=== PATIENT | male | born 1945 | race Caucasian/White ===

== ENCOUNTER 2022-04-07 09:57 | Outpatient (CLI) | payer OTHER, SELFPAY ==
[2022-04-07 13:40] LABS: Basophils Absolute Auto 0.03 K/uL (0.00-0.30); Basophils Percent Auto 0.6 % (0.0-3.0); Eosinophils Absolute Auto 0.12 K/uL (0.00-0.50); Eosinophils Percent Auto 2.4 % (0.0-7.0); Hematocrit 44.4 % (37.0-53.0); Hemoglobin* 14.4 gm/dL (13.5-17.5); Immature Granulocytes Abs Auto 0.01 K/uL (0.00-0.30); Lymphocytes Percent Auto 18.2 % (20-44); Mean Corpuscular HGB Conc 32 gm/dL (32-36); Mean Corpuscular Hemoglobin 30 pg (26-34); Mean Corpuscular Volume 93 fL (80-100); Monocytes Percent Auto 9.1 % (0.0-11.0); Neutrophils Absolute Auto 3.51 K/uL (1.7-7.0); Neutrophils Percent Auto 69.5 % (42.0-72.0); Platelet Count* 196 K/uL (140-440); RDW Coefficient of Variation % 13.6 % (11.5-15.5); Red Blood Count 4.78 m/uL (4.30-5.90); White Blood Count* 5.05 K/uL (4.50-11.00)
[2022-04-07 13:59] LABS: Slide Review Reflex No
[2022-04-07 14:54] LABS: Carbamazepine Tegretol* 6.3 ug/mL (4.0-12.0)
[2022-04-07 15:26] LABS: Chloride* 104 mmol/L (96-114); Potassium* 4.4 mmol/L (3.6-5.1); Sodium* 137 mmol/L (135-149)
[2022-04-07 15:29] LABS: Alanine Aminotransferase* 13 U/L (4-50); Blood Urea Nitrogen* 23 mg/dL (7-30); Carbon Dioxide* 28 mmol/L (20-32); Creatinine* 0.8 mg/dL (0.5-1.5); Estimated Glomerular Filt Rate 92 ml/min
[2022-04-07 15:30] LABS: Calcium* 8.9 mg/dL (8.4-10.6); Glucose* 100 mg/dL (60-115)
== END 2022-04-07 09:58 | disposition home or self-care (01) ==
PROVIDERS: PCP Family Medicine; Visit Provider Family Medicine
DX: G40.909 Epilepsy, unspecified, not intractable, without status epilepticus (principal); I10 Essential (primary) hypertension; F03.90 Unspecified dementia, unspecified severity, without behavioral disturbance, psychotic disturbance, mood disturbance, and anxiety
CPT/HCPCS: 80048; 80156; 84460; 85025

== ENCOUNTER 2023-08-31 12:15 | Outpatient (CLI) | payer MEDICARE, SELFPAY ==
--- OUTSIDE RECORDS SUMMARY | 2023-08-31 12:20 | XMS_ITS | Patient Health Record ---
Author Name Unknown Organization [facility] - Primary Address [address] [place] [address] Care Team Providers Care Childcare Center Director Name Role Phone Juanito Garvin Primary Care Provider REASON FOR REFERRAL No Information SOCIAL HISTORY Sex Assigned At : Social History Observation Description Sex Assigned At Unknown PLAN OF TREATMENT No Information Insurance Providers Payer Name Payer Address Payer Phone Subscriber Number Group Number Insured Name Patient Relationship to Insured Coverage Start Date Coverage End Date [employer] [address] [place] [address] [id number] Shantanu Iyer Self - patient is the insured
--- OUTSIDE RECORDS SUMMARY | 2023-08-31 12:20 | XMS_ITS | Patient Health Record ---
Author Name Unknown Organization [facility] - Primary Address [address] [place] [address] [address] [place] [address] Care Team Providers Care Communications Manager Name Role Phone Juanito Garvin Primary Care Provider Alexia Brito Unavailable [phone] REASON FOR REFERRAL No Information MEDICATIONS Medication SIG (Take, Route, Fr equency, Duration) Notes Start Date End Date Status levETIRAcetam 500 mg 1 tab(s) orally BID for 30 day(s) Active SOCIAL HISTORY Sex Assigned At : Social History Observation Description Sex Assigned At Unknown PROBLEMS Problem Type ICD Code Onset Dates Problem Status W/U Status Risk SNOMED Code Notes Problem Back pain (724.5) Active confirmed Back pain (163148860) Problem Headache (784.0) Active confirmed Heada ariana (18936158) Problem Unspecified fracture of upper end of left humerus, initial encounter for closed fracture (S42.A) Active confirmed Closed fracture of upper end of humerus (88324179) PLAN OF TREATMENT No Information Insurance Providers Payer Name Payer Address Payer Phone Subscriber Number Group Number Insured Name Patient Relationship to Insured Coverage Start Date Coverage End Date [employer] [facility] [place] [address] [address] [place] [address] [id number] Jaylon, Leon Self - patient is the insured MEDICAL (GENERAL) HISTORY Medical History History ICD Code right hip replacement Surgical History Surgery Date(Month/Year) hip surgery 2000
== END 2023-08-31 12:16 | disposition home or self-care (01) ==
PROVIDERS: PCP Family Medicine; Visit Provider Family Medicine
DX: I10 Essential (primary) hypertension (principal); G40.909 Epilepsy, unspecified, not intractable, without status epilepticus; R53.83 Other fatigue; Z13.29 Encounter for screening for other suspected endocrine disorder; Z13.0 Encounter for screening for diseases of the blood and blood-forming organs and certain disorders involving the immune mechanism
CPT/HCPCS: 80048; 80156; 84443; 84460; 85025